=== PATIENT | male | born 1985 | race Caucasian/White ===

== ENCOUNTER 2018-12-01 17:28 | Emergency (ER) | payer SELFPAY ==
[2018-12-01] MEDS ORDERED: Acetaminophen/HYDROcodone 325-5 MG Tab PO ONE (18:41)
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
--- NOTE | 2018-12-02 05:57 | CR ---
Right ankle: Two views of the right ankle were obtained. Comparison: No previous study. Ankle mortise is symmetric. Soft tissue swelling is seen. Very minimal cortical avulsion fracture is noted off the lateral talus. No additional fracture or other bony abnormality is seen. Impression: 1. Very minimal cortical avulsion fracture off the lateral talus. 2. Soft tissue swelling. Diagnostic code #3
--- NOTE | 2018-12-02 06:00 | CR ---
Right foot: Four views of the right foot were obtained. Comparison: No previous foot exam. Joint spaces are preserved. Several minimal calcifications are noted off the base of the distal phalanx of the first digit which are well corticated and felt to be old. No fracture, dislocation or other bony abnormality is seen. Impression: 1. No acute abnormality is appreciated on right foot exam. Diagnostic code #2
== END 2018-12-01 19:36 | disposition home or self-care (01) ==
LOC: JD.ED 17:28
DX: S90.31XA Contusion of right foot, initial encounter (principal); F17.210 Nicotine dependence, cigarettes, uncomplicated; V86.99XA Unspecified occupant of other special all-terrain or other off-road motor vehicle injured in nontraffic accident, initial encounter
CPT/HCPCS: 73600-26-RT; 73600-RT; 73630-26-RT; 73630-RT; 99284-25; A9270-GY